=== PATIENT | male | born 1995 | race Caucasian/White ===

== ENCOUNTER 2017-12-21 22:00 | Emergency (ER) | payer MEDICAID ==
[~2017-12-21] VITALS: Ht 175.3 cm; Wt 79.5 kg
[~2017-12-21 22:00] MED LIST: etomidate 2mg/ml inj. ONE
[2017-12-21] MEDS ORDERED: normal saline 1000ML IV soln IVB ONE (22:05)
[2017-12-21 22:31] LABS: BASOPHILS # (AUTO) 0.1 X10'3 (0-0.2); BASOPHILS % (AUTO) 0.4 % (0-1); EOSINOPHILS # (AUTO) 0.4 X10'3 (0-0.9); EOSINOPHILS % (AUTO) 2.6 % (0-6); HEMATOCRIT 42.7 % (42.0-52.0); HEMOGLOBIN 14.3 g/dl (14.0-17.9); LYMPHOCYTES # (AUTO) 3.8 X10'3 (1.1-4.8); MEAN CORPUSCULAR HGB CONC 33.3 % (33.0-36.5); MEAN CORPUSCULAR VOLUME 80.9 FL (78-98); MEAN PLATELET VOLUME 8.3 FL (7.4-10.4); MONOCYTES % (AUTO) 6.8 % (2-12); NEUTROPHILS % (AUTO) 63.2 % (42-75); PLATELET COUNT 336 X10'3 (140-440); RED BLOOD COUNT 5.28 X10'6 (4.70-6.10); RED CELL DISTRIBUTION WIDTH 15.3 % (11.5-14.5); WHITE BLOOD COUNT 14.2 X10'3 (4.5-11.0)
[2017-12-21 22:47] LABS: ALANINE AMINOTRANSFERASE 48 U/L (12-78); ALBUMIN 3.7 G/DL (3.4-5.0); ALBUMIN/GLOBULIN RATIO 0.8 (1.1-1.5); ALKALINE PHOSPHATASE 91 IU/L (46-116); ANION GAP 16 (8-16); ASPARTATE AMINO TRANSFERASE 38 U/L (10-37); BILIRUBIN,TOTAL 0.8 MG/DL (0.1-1.0); BLOOD UREA NITROGEN 11 MG/DL (7-18); BUN/CREATININE RATIO 9.7 (5.4-32.0); CALCIUM 8.3 MG/DL (8.5-10.1); CHLORIDE 103 MMOL/L (99-107); CREATINE KINASE 191 U/L (39-308); CREATININE 1.13 MG/DL (0.60-1.10); GLUCOSE 153 MG/DL (70-104); POTASSIUM 3.4 MMOL/L (3.5-5.1); SODIUM 142 MMOL/L (135-145); TOTAL CARBON DIOXIDE 23.5 MMOL/L (24-32); TOTAL PROTEIN 8.2 G/DL (6.4-8.2); eGFR 80 ML/MIN
[2017-12-21 23:26] LABS: CLARITY,URINE CLEAR (Clear); COLOR,URINE YELLOW (Yellow); GLUCOSE, URINE NEGATIVE (Neg); KETONES,URINE NEGATIVE (Neg); LEUKOCYTE ESTERASE ,URINE NEGATIVE (Neg); NITRITES, URINE NEGATIVE (Neg); OCCULT BLOOD,URINE NEGATIVE (Neg); PROTEIN,URINE 100 mg/dl (Neg); UROBILINOGEN,URINE 0.2 E.U/dL (0.2-1.0)
[2017-12-21 23:29] LABS: URINE AMPHETAMINE SCREEN NEGATIVE (Neg); URINE BARBITUATE SCREEN NEGATIVE (Neg); URINE BENZODIAZEPINES SCREEN POSITIVE (Neg); URINE CANNABINOID SCREEN POSITIVE (Neg); URINE COCAINE SCREEN NEGATIVE (Neg); URINE METHADONE SCREEN NEGATIVE (Neg); URINE OPIATE SCREEN POSITIVE (Neg); URINE PHENCYCLIDINE SCREEN NEGATIVE (Neg)
[2017-12-21] MEDS: ondansetron/PF 4mg/2ml inj IV ONE (23:29)
[2017-12-21 23:33] LABS: UA COLLECTION TYPE CLN CATCH MIDSTREAM
[2017-12-21 23:34] LABS: BACTERIA,URINE NONE SEEN /HPF (Neg); RBC,URINE NONE SEEN /HPF (0-2); SQUAMOUS EPITHELIAL CELL,UR NONE SEEN /LPF (FEW); WBC,URINE NONE SEEN /HPF (0-4)
[2017-12-22] MEDS: ondansetron/PF 4mg/2ml inj IV ONE (00:08)
[2017-12-22] MEDS ORDERED: ondansetron/PF 4mg/2ml inj IV ONE (00:10)
[2017-12-22 00:55] VITALS: BP 177/89
== END 2017-12-22 02:59 | disposition home or self-care (01) ==
LOC: ER 22:00 → EDBD 22:00 → ER 12-22 02:59
DX: T42.4X1A Poisoning by benzodiazepines, accidental (unintentional), initial encounter (principal); F17.200 Nicotine dependence, unspecified, uncomplicated; Y92.9 Unspecified place or not applicable
CPT/HCPCS: 36415; 71045; 80053; 80305; 81001; 82550; 84484; 85025; 93005; 96374; 99285; J2405; J3490; J7030

== ENCOUNTER 2022-09-27 17:53 | Emergency (ER) | payer MEDICAID ==
[~2022-09-27] VITALS: Ht 182.9 cm; Wt 84.1 kg
[2022-09-27] MEDS ORDERED: ampicillin/sulbac 3gm/NS 100ml 100 ML IV STA (18:56)
[2022-09-27] MEDS ORDERED: normal saline 1000ml 1,000 ML IV ONE (19:00)
[2022-09-27] MEDS ORDERED: ondansetron/PF 4mg/2ml inj IV ONE (19:00)
[2022-09-27] MEDS ORDERED: iohexol 350MG/ML 100ml bottle IV ONE (19:10)
--- NOTE | 2022-09-27 19:42 | NUR ---
PT TO CT AT THIS TIME
[2022-09-27] MEDS ORDERED: CHLO473M2 MT (22:52)
[2022-09-27] MEDS ORDERED: AMOX-117 PO (22:52)
[2022-09-28 00:16] VITALS: BP 97/58
== END 2022-09-28 00:22 | disposition home or self-care (01) ==
LOC: ER 17:53
DX: S01.532A Puncture wound without foreign body of oral cavity, initial encounter (principal); F10.129 Alcohol abuse with intoxication, unspecified; Y90.9 Presence of alcohol in blood, level not specified; X58.XXXA Exposure to other specified factors, initial encounter; Y93.89 Activity, other specified; Y92.89 Other specified places as the place of occurrence of the external cause; Y99.8 Other external cause status
CPT/HCPCS: 36415; 70498; 80320; 96365; 96375; 99285; J0295; J2405; J3490; J7030; Q9967